=== PATIENT | female | born 1990 | race Caucasian/White ===

== ENCOUNTER 2016-02-20 21:47 | Emergency (ER) | payer MEDICAID ==
[2016-02-20] MEDS ORDERED: ASPIRIN CHEW 81 MG TABLET PO STA (22:15)
[2016-02-20] MEDS ORDERED: ASPIRIN CHEW 81 MG TABLET ONE (22:17)
== END 2016-02-21 00:40 | disposition home or self-care (01) ==
DX: R07.9 Chest pain, unspecified (principal); E66.01 Morbid (severe) obesity due to excess calories; K01.1 Impacted teeth; Z68.43 Body mass index [BMI] 50.0-59.9, adult; Z82.49 Family history of ischemic heart disease and other diseases of the circulatory system
CPT/HCPCS: 36415; 71020; 80048; 84484; 85379; 93005; 93010; 99283; 99284; A9270

== ENCOUNTER 2020-03-29 10:45 | Outpatient (CLI) | payer SELFPAY | END 2020-03-29 10:46 | disposition left against medical advice (07) | LOC: EMS 10:45 | DX: F41.9 Anxiety disorder, unspecified (principal); R07.89 Other chest pain; R06.00 Dyspnea, unspecified ==

== ENCOUNTER 2020-04-20 09:10 | Outpatient (CLI) | payer SELFPAY | END 2020-04-20 09:11 | disposition EMS.NT | LOC: EMS 09:10 | DX: R00.2 Palpitations (principal); R53.1 Weakness; F41.9 Anxiety disorder, unspecified; R06.4 Hyperventilation; R42 Dizziness and giddiness ==

== ENCOUNTER 2020-05-18 12:43 | Outpatient (CLI) | payer SELFPAY | END 2020-05-18 12:44 | disposition EMS.NT | LOC: EMS 12:43 | DX: L29.9 Pruritus, unspecified (principal) ==

== ENCOUNTER 2020-10-23 08:15 | Outpatient (CLI) | payer BC ==
--- NOTE | 2020-10-23 09:37 | XRAY Report ---
PROCEDURE: Knee 3 View LT INDICATIONS: LEFT KNEE PAIN TECHNIQUE: 3 views of the left knee were acquired. COMPARISON: None. FINDINGS: Bones: No acute fractures or dislocations. No suspicious bony lesions. A small ossification adjacen t to the tibial tubercle is most likely the sequela of remote prior history sinus syndrome. Soft tissues: No joint effusion. A small 6 mm ossification is seen projecting over the intercondylar notch that could represent an ossified loose body. IMPRESSION: 1. No acute osseous abnormality. If there is clinical concern or persistent symptoms, additional darío ging such as repeat radiographs or advanced imaging (e.g. CT, MRI) may be helpful for further evaluat ion. 2. Possible 6 mm ossified loose body projecting over the intercondylar notch. 3. Chronic sequela of remote prior Eastman-Schlatter syndrome. Reviewed by: Mitch Celaya MD on 10/23/2020 9:35 AM PDT Approved by: Mitch Celaya MD on 10/23/2020 9:35 AM PDT Station ID: [id number]
== END 2020-10-23 08:16 | disposition home or self-care (01) ==
LOC: DI.N 08:15
PROVIDERS: ATTEND Family Medicine
DX: M25.562 Pain in left knee (principal); R93.6 Abnormal findings on diagnostic imaging of limbs; Z87.39 Personal history of other diseases of the musculoskeletal system and connective tissue

== ENCOUNTER 2022-04-19 15:01 | Outpatient (CLI) | payer BC ==
--- NOTE | 2022-04-19 20:55 | XRAY Report ---
PROCEDURE: Knee 2 View RT INDICATIONS: RIGHT KNEE PAIN TECHNIQUE: 2 views of the right knee(s) were acquired. COMPARISON: None. FINDINGS: Bones: No acute fractures or dislocations. Mild joint space narrowing of the medial and lateral co mpartments. Soft tissues: Small joint effusion. No suspicious soft tissue calcifications. IMPRESSION: 1. No acute fracture or dislocation identified. 2. Small nonspecific joint effusion. 3. Degenerative changes of the knee. 4. If symptoms persist, follow-up radiographs and/or CT or MRI may be helpful for further evaluation. Reviewed by: Mitch Villarreal MD on 04/19/2022 8:53 PM PDT Approved by: Mitch Villarreal MD on 04/19/2022 8:53 PM PDT Station ID: [id number]
== END 2022-04-19 15:02 | disposition home or self-care (01) ==
LOC: DI 15:01
PROVIDERS: ATTEND Family Medicine
DX: M17.11 Unilateral primary osteoarthritis, right knee (principal); M25.461 Effusion, right knee